=== PATIENT | female | born 1975 | race Caucasian/White ===

== ENCOUNTER 2018-02-19 02:28 | Inpatient (IN) | payer MEDICAID ==
[2018-02-19] MEDS ORDERED: CARBOPROST 250 MCG INJ IM ×2 (03:00→06:00)
[2018-02-19] MEDS ORDERED: MISOPROSTOL 200 MCG TAB PR ×2 (03:00→06:00)
[2018-02-19] MEDS ORDERED: METHYLERGONOVINE 0.2 MG INJ IM ×2 (03:00→06:00)
[2018-02-19] MEDS ORDERED: BUTORPHANOL 2 MG INJ IV (03:00)
[2018-02-19] MEDS ORDERED: LIDOCAINE 1% (MPF) 30 ML INJ INJ (03:00)
[2018-02-19] MEDS ORDERED: OXYTOCIN 30 UNITS/LR 500 ML IV ×2 (03:00→06:00)
[2018-02-19 03:35] LABS: ADD MAN DIFF? NO
[2018-02-19] MEDS: LACTATED RINGER'S 1,000 ML IV (03:44)
[2018-02-19] MEDS ORDERED: IBUPROFEN 600 MG TAB PO (04:00)
[2018-02-19 04:10] LABS: INR 1.02; PROTIME 13.5 Sec (11.9-14.9); PT RATIO 1.1
[2018-02-19 04:12] LABS: WHITE BLOOD COUNT 10.9 10^3/ul (4.8-10.8)
[2018-02-19 04:12] LABS: BASOPHILS % 0.4 % (0.0-2.0); EOSINOPHILS # 0.1 10^3/ul (0.0-0.5); EOSINOPHILS % 0.6 % (0.0-7.0); HEMATOCRIT 40.7 % (37.0-47.0); HEMOGLOBIN 13.7 g/dl (12.0-16.0); LYMPHOCYTES # 1.7 10^3/ul (0.8-2.9); LYMPHOCYTES % 15.5 % (15.0-51.0); MEAN CORPUSCULAR HEMOGLOBIN 29.7 pg (29.0-33.0); MEAN CORPUSCULAR HGB CONC 33.7 g/dl (32.0-37.0); MEAN CORPUSCULAR VOLUME 88.1 fl (82.0-101.0); MEAN PLATELET VOLUME 9.9 fl (7.4-10.4); MONOCYTE # 0.9 10^3/ul (0.3-0.9); MONOCYTES % 7.9 % (0.0-11.0); NEUTROPHIL # 8.2 10^3/ul (1.6-7.5); NEUTROPHILS % 74.8 % (39.0-77.0); PLATELET COUNT 205 10^3/UL (140-415); RED BLOOD COUNT 4.62 10^6/ul (4.20-5.40); RED CELL DISTRIBUTION WIDTH 14.5 % (11.5-14.5)
[2018-02-19] MEDS: OXYTOCIN 30 UNITS/LR 500 ML IV ×3 (05:37→10:17)
[2018-02-19] MEDS: MINERAL OIL LIGHT 10 ML VIAL TOP (05:37)
[2018-02-19] MEDS ORDERED: HYDROCODONE/APAP (5/325) TAB PO (06:00)
[2018-02-19] MEDS: IBUPROFEN 600 MG TAB PO ×3 (06:21→17:45)
[2018-02-19] MEDS: LANOLIN 7 GM TUBE TOP (09:57)
[2018-02-19] MEDS: LACTATED RINGER'S 1,000 ML IV* ×3 (10:13→21:39)
[2018-02-19 20:46] LABS: RHOGAM PROFILE 1 1
[2018-02-19 21:30] LABS: RAPID PLASMA REAGIN NONREACTIVE (NR)
[2018-02-20] MEDS: IBUPROFEN 600 MG TAB PO ×4 (00:06→11:49)
[2018-02-20] MEDS: LACTATED RINGER'S 1,000 ML IV* (05:39)
[2018-02-20 09:24] LABS: ADD MAN DIFF? NO
[2018-02-20 09:38] LABS: BASOPHILS % 0.4 % (0.0-2.0); EOSINOPHILS # 0.2 10^3/ul (0.0-0.5); EOSINOPHILS % 2.5 % (0.0-7.0); HEMOGLOBIN 11.8 g/dl (12.0-16.0); LYMPHOCYTES # 1.6 10^3/ul (0.8-2.9); LYMPHOCYTES % 16.9 % (15.0-51.0); MEAN CORPUSCULAR HEMOGLOBIN 29.5 pg (29.0-33.0); MEAN CORPUSCULAR HGB CONC 32.8 g/dl (32.0-37.0); MEAN PLATELET VOLUME 9.9 fl (7.4-10.4); MONOCYTE # 0.7 10^3/ul (0.3-0.9); MONOCYTES % 7.2 % (0.0-11.0); NEUTROPHIL # 6.8 10^3/ul (1.6-7.5); PLATELET COUNT 205 10^3/UL (140-415); RED CELL DISTRIBUTION WIDTH 14.7 % (11.5-14.5)
[2018-02-20 09:38] LABS: WHITE BLOOD COUNT 9.4 10^3/ul (4.8-10.8)
[2018-02-20] MEDS: IBUPROFEN 600 MG TAB GTB ×3 (12:00→23:23)
[2018-02-21] MEDS: IBUPROFEN 600 MG TAB GTB ×2 (05:16→11:40)
[2018-02-21] MEDS: DIPHTH/TET/ACEL PERTUSS (ADULT) 0.5 ML VIAL IM* (09:00)
== END 2018-02-21 14:45 | disposition home or self-care (01) | DRG 775 ==
LOC: OBT 02:28 → L-D 02:30 → OBT 02:44 → L-D 02:45 → PP1 08:28
PROC: 10E0XZZ Delivery of Products of Conception, External Approach (ICD-10-PCS; principal; 2018-02-19)
DX: O80 Encounter for full-term uncomplicated delivery (principal); Z37.0 Single live birth; Z3A.40 40 weeks gestation of pregnancy
CPT/HCPCS: 85025; 85610; 85730; 86592; 86850; 86885; 86900; 86901